=== PATIENT | male | born 1950 | race Native Hawaiian/Other Pacific Islander ===

== ENCOUNTER 2016-05-08 16:06 | Emergency (ER) | payer MEDICARE ==
[~2016-05-08] VITALS: Ht 162.6 cm; Wt 60.5 kg
[~2016-05-08 16:06] MED LIST: IBUP600T26 PO; TRAM50 PO
[2016-05-08 16:10] VITALS: BP 169/98; PULSE 68; RESP 16; TEMP 97.7; O2SAT 100
[2016-05-08] MEDS ORDERED: DIPH1TAB4 PO (16:23)
[2016-05-08] MEDS ORDERED: SODIUM CHLOR 0.9% 1000 ML INJ 1,000 ML IV SCH (17:00)
[2016-05-08] MEDS ORDERED: ONDANSETRON HCL 4 MG/2 ML VIAL IVP ONE (17:00)
[2016-05-08] MEDS ORDERED: SODIUM CHLORIDE 0.9% FLUSH 5 ML FLUSH IVF PRN (17:00)
[2016-05-08] MEDS ORDERED: FAMOTIDINE 20 MG TAB PO ONE (17:00)
[2016-05-08] MEDS ORDERED: LIDOCAINE VISCOUS 2% SOLN 15 ML UDC PO ONE (17:00)
[2016-05-08] MEDS ORDERED: ALUMINUM/MAGNESIUM/SIMETH 30 ML CUP PO ONE (17:00)
--- NOTE | 2016-05-08 17:06 | PD ---
HPI Chief Complaint: GI Complaint Time Seen by Provider: 16:31 Travel History International Travel<30 days: No Contact w/Intl Traveler<30days: No Traveled to known affect area: No History of Present Illness HPI This 65-year-old man who presents to the emergency department complaining of epigastric pressure and discomfort with increased belching, ongoing for sometime or worse over the past week. Is no history of any significant medical problems. He's had some associated nausea. He denies any chest pain but states sometimes the pain affect. He had a bowel movement yesterday, states he is been a little bit constipated recently. The only history of abdominal surgery was a surgical removal kidney stone in the 70s. No other complaints. History Past Medical History Medical History: Denies Significant Hx Influenza Vaccination: No Social History Alcohol Use: No Tobacco Use: No Allergies-Medications (Allergen,Severity, Reaction): Coded Allergies: No Known Allergies (Verified , 05/08/16) Reported Meds & Prescriptions Reported Meds & Active Scripts Active Reported Sleep Aid (Diphenhydramine HCl (Sleep)) 25 Mg Tab 0 PO HS Review of Systems Except as stated in HPI: all other systems reviewed are Neg Physical Exam Narrative GENERAL: Well-appearing 65-year-old man, no acute distress. SKIN: Warm and dry. HEAD: Atraumatic. Normocephalic. EYES: Pupils equal and round. No scleral icterus. No injection or drainage. ENT: No nasal bleeding or discharge. Mucous membranes pink and moist. NECK: Trachea midline. No JVD. CARDIOVASCULAR: Regular rate and rhythm. No murmur appreciated. RESPIRATORY: No accessory muscle use. Clear to auscultation. Breath sounds equal bilaterally. GASTROINTESTINAL: Normal contour and appearance. Abdomen is soft. Mild epigastric tenderness. No right upper quadrant tenderness. Negative Lunsford's. MUSCULOSKELETAL: No obvious deformities. No clubbing. No cyanosis. No edema. NEUROLOGICAL: Awake and alert. No obvious cranial nerve deficits. Motor grossly within normal limits. Normal speech. Data Data Last Documented VS Vital Signs Date Time Temp Pulse Resp B/P Pulse Ox O2 Delivery O2 Flow Rate FiO2 05/08/16 18:35 70 16 173/78 100 Room Air 05/08/16 16:10 97.7 Orders Complete Blood Count With Diff (05/08/16 17:00) Comprehensive Metabolic Panel (05/08/16 17:00) Lipase (3/2/17 17:00) Abdomen, Flat & Upright (05/08/16 ) Iv Access Insert/Monitor (05/08/16 17:00) Ondansetron Inj (Zofran Inj) (05/08/16 17:00) Sodium Chlor 0.9% 1000 Ml Inj (Ns 1000 M (05/08/16 17:00) Sodium Chloride 0.9% Flush (Ns Flush) (05/08/16 17:00) Electrocardiogram (05/08/16 17:00) Chest, Single Ap (05/08/16 17:00) Al-Mag Hy-Si 40-40-4 Mg/Ml Liq (Mag-Al P (05/08/16 17:00) Lidocaine 2% Viscous (Xylocaine 2% Visco (05/08/16 17:00) Famotidine (Pepcid) (05/08/16 17:00) Labs Laboratory Tests Test 05/08/16 17:25 White Blood Count 6.3 TH/MM3 Red Blood Count 4.41 MIL/MM3 Hemoglobin 13.2 GM/DL Hematocrit 38.0 % Mean Corpuscular Volume 86.2 FL Mean Corpuscular Hemoglobin 29.9 PG Mean Corpuscular Hemoglobin 34.7 % Concent Red Cell Distribution Width 11.7 % Platelet Count 254 TH/MM3 Mean Platelet Volume 8.0 FL Neutrophils (%) (Auto) 65.3 % Lymphocytes (%) (Auto) 27.2 % Monocytes (%) (Auto) 6.5 % Eosinophils (%) (Auto) 0.8 % Basophils (%) (Auto) 0.2 % Neutrophils # (Auto) 4.1 TH/MM3 Lymphocytes # (Auto) 1.7 TH/MM3 Monocytes # (Auto) 0.4 TH/MM3 Eosinophils # (Auto) 0.1 TH/MM3 Basophils # (Auto) 0.0 TH/MM3 CBC Comment DIFF FINAL Differential Comment Sodium Level 137 MEQ/L Potassium Level 3.8 MEQ/L Chloride Level 100 MEQ/L Carbon Dioxide Level 27.9 MEQ/L Anion Gap 9 MEQ/L Blood Urea Nitrogen 24 MG/DL Creatinine 1.30 MG/DL Estimat Glomerular Filtration 55 ML/MIN Rate Random Glucose 263 MG/DL Calcium Level 8.4 MG/DL Total Bilirubin 0.4 MG/DL Aspartate Amino Transf 8 U/L (AST/SGOT) Alanine Aminotransferase 24 U/L (ALT/SGPT) Alkaline Phosphatase 66 U/L Total Protein 7.9 GM/DL Albumin 3.9 GM/DL Lipase 101 U/L [facility] Medical Decision Making Medical Screen Exam Complete: Yes Emergency Medical Condition: Yes Interpretation(s) LABS: CBC unremarkable CMP remarkable for mildly elevated glucose 263 Lipase 101 Abdominal x-ray: Normal examination. Differential Diagnosis Gastritis, pancreatitis, hepatobiliary disease, ACS, pneumonia, obstruction, other Narrative Course Medical decision making INITIAL: 65-year-old male presents to the emergency department with belching a lot and epigastric pressure I think is likely related to gastritis. I don't see any evidence of gallbladder disease. I don't think he has obstruction. We' ll check labs, imaging, EKG and chest x-ray, likely discharge with antacids. Diagnosis Primary Impression: New onset type 2 diabetes mellitus Additional Impression: Belching Additional Instructions: Take metformin as prescribed for elevated blood sugar. Take ranitidine as prescribed for indigestion symptoms. Follow-up with a primary physician in the next one to 2 weeks for evaluation. Return to the emergency department for any new or worsening symptoms. Med/Other Pt SpecificInfo: Prescription(s) given Scripts Ranitidine 150 Mg [id number] Mg PO BID #60 TAB Ref 0 Prov:Kin Bethea MD 05/08/16 Metformin 500 Mg [id number] Mg PO BIDPC #60 TAB Ref 0 With meals Prov:Kin Bethea MD 05/08/16 Disposition: 01 DISCHARGE HOME Condition: Stable Kin Bethea MD May 08, 2016 17:06
[2016-05-08 17:25] VITALS: BP 191/84; PULSE 66; RESP 16; O2SAT 100
--- NOTE | 2016-05-08 17:31 | RADHPO ---
EXAM DATE/TIME: 05/08/2016 17:10 [facility] COMPARISON: No previous studies available for comparison. INDICATIONS : Chest pains. MEDICAL HISTORY : None. SURGICAL HISTORY : None. ENCOUNTER: Initial ACUITY: 1 week PAIN SCORE: 8/10 LOCATION: Right chest lower side FINDINGS: A single view of the chest demonstrates the lungs to be symmetrically aerated without evidence of mas s, infiltrate or effusion. The cardiomediastinal contours are unremarkable. Osseous structures are intact. CONCLUSION: Normal examination. Kin Schwartz MD on May 08, 2016 at 17:29 Board Certified Radiologist. This report was verified electronically.
--- NOTE | 2016-05-08 17:33 | RADHPO ---
EXAM DATE/TIME: 05/08/2016 17:14 [facility] COMPARISON: No previous studies available for comparison. INDICATIONS : Abdomen pain. MEDICAL HISTORY : None. SURGICAL HISTORY : None. ENCOUNTER: Initial ACUITY: 1 week PAIN SCORE: 7/10 LOCATION: Right upper extremity FINDINGS: Supine and upright views of the abdomen were performed. The abdominal bowel gas pattern is normal. No air fluid levels are seen. No abnormal masses, calcifications, or organomegaly is seen. The visu alized lower lungs are clear. No evidence of free intraperitoneal gas. The osseous structures are u nremarkable. CONCLUSION: Normal examination. Calcification overlying the pelvis I suspect are all phleboliths. Kin Schwartz MD on May 08, 2016 at 17:31 Board Certified Radiologist. This report was verified electronically.
[2016-05-08 17:56] LABS: CHLORIDE 100 MEQ/L (98-107); POTASSIUM 3.8 MEQ/L (3.5-5.1); SODIUM (NA) 137 MEQ/L (136-145)
[2016-05-08 18:00] LABS: ANION GAP 9 MEQ/L (5-15); BICARBONATE 27.9 MEQ/L (21.0-32.0); BLOOD UREA NITROGEN 24 MG/DL (7-18)
[2016-05-08 18:03] LABS: ALT (GPT) 24 U/L (12-78); AST (GOT) 8 U/L (15-37); GLOMERULAR FILTRATION RATE 55 ML/MIN (>89)
[2016-05-08 18:04] LABS: TOTAL BILIRUBIN ADULT 0.4 MG/DL (0.2-1.0)
[2016-05-08 18:06] LABS: ALKALINE PHOSPHATASE 66 U/L (45-117)
[2016-05-08 18:35] VITALS: BP 173/78; PULSE 70; RESP 16; O2SAT 100
[2016-05-08 18:42] LABS: AUTOMATED NEUTROPHIL # 4.1 TH/MM3 (1.8-7.7); BASOPHIL % 0.2 % (0.0-2.0); EOSINOPHIL # 0.1 TH/MM3 (0-0.4); EOSINOPHIL % 0.8 % (0.0-4.0); HEMO FLAGS DIFF FINAL; LYMPH % 27.2 % (9.0-44.0); LYMPHOCYTE # 1.7 TH/MM3 (1.0-4.8); MEAN CELL VOLUME 86.2 FL (80.0-100.0); MEAN CORPUSCULAR HEMOGLOBIN 29.9 PG (27.0-34.0); MEAN CORPUSCULAR HGB CONC 34.7 % (32.0-36.0); MONO % 6.5 % (0.0-8.0); NEUT % 65.3 % (16.0-70.0); PLATELET COUNT 254 TH/MM3 (150-450); RED BLOOD COUNT 4.41 MIL/MM3 (4.50-5.90); RED CELL DISTRIBUTION WIDTH 11.7 % (11.6-17.2); WHITE BLOOD COUNT 6.3 TH/MM3 (4.0-11.0)
[2016-05-08] MEDS ORDERED: METF500T PO (18:49)
[2016-05-08] MEDS ORDERED: RANI150T PO (18:49)
--- NOTE | 2016-05-09 23:27 | EKG ---
Date Performed: 05/08/2016 Time Performed: 17:05:08 PTAGE: 65 years EKG: Sinus rhythm Left axis deviation Septal T wave changes are nonspecific Borderline ECG PREVIOUS TRACING : 12/02/2003 16.59 DOCTOR: Blake Weller Interpretating Date/Time 05/09/2016 23:26:03
== END 2016-05-08 19:49 | disposition home or self-care (01) ==
LOC: PHED 16:06
DX: E11.65 Type 2 diabetes mellitus with hyperglycemia (principal); R14.2 Eructation; Z79.4 Long term (current) use of insulin
CPT/HCPCS: 71010; 74020; 80053; 83690; 85025; 93005; 96361; 96374; 99284; J2405; J7030

== ENCOUNTER 2017-04-17 19:08 | Emergency (ER) | payer MEDICARE, OTHER ==
[~2017-04-17] VITALS: Ht 162.6 cm; Wt 57.7 kg
[~2017-04-17 19:08] MED LIST changes: +DIPH1TAB4 PO; -IBUP600T26 PO; +METF500T PO; +RANI150T PO; -TRAM50 PO
[2017-04-17 19:15] VITALS: BP 128/60; PULSE 82; RESP 18; TEMP 98; O2SAT 99
[2017-04-17] MEDS ORDERED: ROSU20 PO (19:22)
[2017-04-17] MEDS ORDERED: DIPH25CA PO (19:33)
[2017-04-17] MEDS ORDERED: ZANT150T2 PO (19:33)
--- NOTE | 2017-04-17 19:35 | PD ---
HPI Chief Complaint: Allergic/Adverse Reaction Time Seen by Provider: 19:21 Travel History International Travel<30 days: No Contact w/Intl Traveler<30days: No Traveled to known affect area: No History of Present Illness HPI The patient is a 66-year-old male that was cutting wood and about an hour 15 minutes later he developed a rash and hives which are generalized. He states the wood chips got all over him and he has never had this before. He denies any syncopal or near syncopal spells or shortness of breath or wheezing. He denies any chest pain. He denies any fever. PFSH Past Medical History Diabetes: Yes Patient Takes Glucophage: Yes Diminished Hearing: No Tetanus Vaccination: Unknown Influenza Vaccination: No Past Surgical History Genitourinary Surgery: Yes (1976 KIDNEY STONE REMOVAL) Social History Alcohol Use: No Tobacco Use: No Substance Use: No Allergies-Medications (Allergen,Severity, Reaction): Coded Allergies: No Known Allergies (Verified Adverse Reaction, Unknown, 04/17/17) Reported Meds & Prescriptions Reported Meds & Active Scripts Active Zantac (Ranitidine HCl) 150 Mg Tab 150 Mg PO BID Diphenhydramine (Diphenhydramine HCl) 25 Mg Cap 25 Mg PO Q6H PRN Metformin (Metformin HCl) 500 Mg Tab 500 Mg PO BIDPC With meals Reported Crestor (Rosuvastatin Calcium) 20 Mg Tab 20 Mg PO DAILY Sleep Aid (Diphenhydramine HCl (Sleep)) 25 Mg Tab 0 PO HS Review of Systems Except as stated in HPI: all other systems reviewed are Neg Physical Exam Narrative GENERAL: The patient is alert, oriented 3 and slight apparent distress with his generalized pruritic urticarial rash. His vital signs are normal. SKIN: Focused skin assessment warm/dry. HEAD: Atraumatic. Normocephalic. EYES: Pupils equal and round. No scleral icterus. No injection or drainage. ENT: No nasal bleeding or discharge. Mucous membranes pink and moist. NECK: Trachea midline. No JVD. CARDIOVASCULAR: Regular rate and rhythm. No murmur appreciated. RESPIRATORY: No accessory muscle use. Clear to auscultation. Breath sounds equal bilaterally. GASTROINTESTINAL: Abdomen soft, non-tender, nondistended. Hepatic and splenic margins not palpable. MUSCULOSKELETAL: No obvious deformities. No clubbing. No cyanosis. No edema. NEUROLOGICAL: Awake and alert. No obvious cranial nerve deficits. Motor grossly within normal limits. Normal speech. PSYCHIATRIC: Appropriate mood and affect; insight and judgment normal. Data Data Last Documented VS Vital Signs Date Time Temp Pulse Resp B/P (MAP) Pulse Ox O2 Delivery O2 Flow Rate FiO2 04/17/17 19:43 82 116/64 04/17/17 19:23 18 99 Room Air 04/17/17 19:15 98.0 Orders Orders Epinephrine (1:1000) Inj (Adrenalin (1:1 (04/17/17 19:45) Famotidine (Pepcid) (04/17/17 19:45) Diphenhydramine (Benadryl) (04/17/17 19:45) MDM Medical Decision Making Medical Screen Exam Complete: Yes Emergency Medical Condition: Yes Medical Record Reviewed: Yes Differential Diagnosis Allergic reaction, contact dermatitis, cellulitis-unlikely Narrative Course The patient has a generalized allergic reaction. It may be due to woodchips or substances contained within the woodchips. Plan: The patient be given prescriptions for Zantac and Benadryl. He is a diabetic and does not want to take prednisone. He will also get an epinephrine shot. Diagnosis Primary Impression: Allergic reaction Additional Impression: New onset type 2 diabetes mellitus Additional Instructions: This rash should go away in several days. If it does not he may need to be put on a course of prednisone. Follow-up with an stroboroma operator or your primary care physician. Med/Other Pt SpecificInfo: Prescription(s) given Scripts Ranitidine (Zantac) 150 Mg Tab 150 MG PO BID for Reduce Stomach Acid, #60 TAB 0 Refills Prov: Inocenico Escudero MD 04/17/17 Diphenhydramine (Diphenhydramine) 25 Mg Cap 25 MG PO Q6H Y for ALLERGIES, #44 CAP 0 Refills Prov: Inocencio Escudero MD 04/17/17 Disposition: 01 DISCHARGE HOME Condition: Stable Inocencio Escudero MD Apr 17, 2017 19:35
[2017-04-17] MEDS ORDERED: diphenhydrAMINE HCL 50 MG CAP PO ONE (19:45)
[2017-04-17] MEDS ORDERED: EPINEPHrine HCL (1:1000) 1 MG/ML VIAL IM ONE (19:45)
[2017-04-17] MEDS ORDERED: FAMOTIDINE 20 MG TAB PO ONE (19:45)
[2017-04-17 20:23] VITALS: BP 129/57; PULSE 82; RESP 18; O2SAT 100
== END 2017-04-17 20:29 | disposition home or self-care (01) ==
LOC: PHED 19:08
DX: R21 Rash and other nonspecific skin eruption (principal); T78.49XA Other allergy, initial encounter; Y93.H9 Activity, other involving exterior property and land maintenance, building and construction; E11.9 Type 2 diabetes mellitus without complications; Z79.84 Long term (current) use of oral hypoglycemic drugs
CPT/HCPCS: 96372; 99283; J0171; Q0163

== ENCOUNTER 2017-04-26 16:34 | Emergency (ER) | payer OTHER ==
[~2017-04-26] VITALS: Ht 162.6 cm; Wt 57.0 kg
[~2017-04-26 16:34] MED LIST changes: +DIPH25CA PO; -RANI150T PO; +ROSU20 PO; +ZANT150T2 PO
[2017-04-26 16:38] VITALS: BP 139/69; PULSE 76; RESP 16; TEMP 98.5; O2SAT 100
[2017-04-26] MEDS ORDERED: METF500T PO (16:48)
[2017-04-26] MEDS ORDERED: METF1000 PO (16:48)
[2017-04-26] MEDS ORDERED: ROSU20 PO (16:48)
[2017-04-26] MEDS ORDERED: AZIT250T3 PO (17:48)
[2017-04-26] MEDS ORDERED: BENZ100 PO (17:48)
--- NOTE | 2017-04-26 17:49 | PD ---
HPI Chief Complaint: Cold / Flu Symptoms Time Seen by Provider: 17:27 Travel History International Travel<30 days: No Contact w/Intl Traveler<30days: No Traveled to known affect area: No History of Present Illness HPI This is a 66-year-old male here with cough and nasal congestion 2 weeks. He reports the last several days he developed a productive cough. He denies fever or chills. Symptom severity is mild to moderate. No aggravating or alleviating factors. He denies chest pain or shortness of breath. PFSH Past Medical History Hx Anticoagulant Therapy: No Cardiovascular Problems: Yes (CHOL) Diabetes: Yes Patient Takes Glucophage: Yes (04-26-17 0900) Diminished Hearing: No Tetanus Vaccination: < 5 Years Influenza Vaccination: No Past Surgical History Genitourinary Surgery: Yes (1976 KIDNEY STONE REMOVAL) Social History Alcohol Use: No Tobacco Use: No Substance Use: No Allergies-Medications (Allergen,Severity, Reaction): Coded Allergies: No Known Allergies (Verified Adverse Reaction, Unknown, 04/26/17) Reported Meds & Prescriptions Reported Meds & Active Scripts Active Reported Crestor (Rosuvastatin Calcium) 20 Mg Tab 20 Mg PO DAILY Metformin (Metformin HCl) 500 Mg Tab 500 Mg PO DAILY With a meal Metformin (Metformin HCl) 1,000 Mg Tab 1,000 Mg PO DAILY With a meal Review of Systems Except as stated in HPI: all other systems reviewed are Neg General / Constitutional: No: Fever Eyes: No: Visual changes HENT: Positive: Congestion, No: Headaches Cardiovascular: No: Chest Pain or Discomfort Respiratory: Positive: Cough Gastrointestinal: No: Abdominal Pain Genitourinary: No: Dysuria Musculoskeletal: No: Pain Skin: No Rash Physical Exam Narrative GENERAL: Alert 66-year-old male. Nontoxic appearing. SKIN: Warm and dry. No rash HEAD: Normocephalic. EYES: No injection or drainage. Ear/nose/throat: No TM erythema. Clear nasal discharge. Mild pharyngeal erythema without tonsillar hypertrophy or exudate. NECK: Supple. No meningismus. CARDIOVASCULAR: Regular rate and rhythm RESPIRATORY: Breath sounds equal bilaterally. No accessory muscle use. No wheezing. rhonchorous cough GASTROINTESTINAL: Abdomen soft, non-tender, nondistended. MUSCULOSKELETAL: No cyanosis, or edema. BACK: No CVA tenderness. Data Data Last Documented VS Vital Signs Date Time Temp Pulse Resp B/P (MAP) Pulse Ox O2 Delivery O2 Flow Rate FiO2 04/26/17 16:38 98.5 76 16 139/69 (92) 100 MDM Medical Decision Making Medical Screen Exam Complete: Yes Emergency Medical Condition: Yes Differential Diagnosis Influenza, bronchitis, pneumonia Narrative Course This is a 66-year-old male here with bronchitis. He is well-appearing. His vital signs are stable. Given his age and duration of symptoms. He'll be treated with azithromycin. Diagnosis Primary Impression: Bronchitis Referrals: Primary Care Physician Additional Instructions: Antibiotic as directed. Tylenol and ibuprofen as needed for pain and fever. Stay well hydrated. Follow-up with her primary doctor. Scripts Benzonatate (Tessalon Perles) 100 Mg Cap 200 MG PO TID Y for COUGH, #12 CAP 0 Refills Prov: Mulu Ford 04/26/17 Azithromycin (Azithromycin) 250 Mg Tab 250 MG PO DIRECTED for Infection, #6 TAB 0 Refills Take 2 tabs (500 mg) on day 1 then 1 tab daily x 4 days. Prov: Mulu Ford 04/26/17 Disposition: 01 DISCHARGE HOME Condition: Stable Mulu Ford Apr 26, 2017 17:49
== END 2017-04-26 18:08 | disposition home or self-care (01) ==
LOC: PHEFT 16:34
DX: J40 Bronchitis, not specified as acute or chronic (principal); E11.9 Type 2 diabetes mellitus without complications; Z79.899 Other long term (current) drug therapy
CPT/HCPCS: 99283

== ENCOUNTER 2017-05-22 17:35 | Emergency (ER) | payer OTHER ==
[~2017-05-22] VITALS: Ht 162.6 cm; Wt 60.0 kg
[~2017-05-22 17:35] MED LIST changes: +AZIT250T3 PO; +BENZ100 PO; -DIPH1TAB4 PO; -DIPH25CA PO; +METF1000 PO; -ZANT150T2 PO
[2017-05-22 17:46] VITALS: BP 136/72; PULSE 82; RESP 16; TEMP 98.2; O2SAT 99
[2017-05-22] MEDS ORDERED: MOBI15TA PO (18:12)
--- NOTE | 2017-05-22 18:12 | PD ---
HPI Chief Complaint: Pain: Acute or Chronic Time Seen by Provider: 17:56 Travel History International Travel<30 days: No Contact w/Intl Traveler<30days: No Traveled to known affect area: No History of Present Illness HPI 66-year-old male presents to emergency department for evaluation of pain from his left elbow to his left wrist. This is been ongoing for the last 3 years. Sometimes it is worse than other times. He seems to notice it more at night. States he is right-handed and does not do any repetitive movements with his left upper extremity. He has been told in the past that he has carpal tunnel but has not sought follow-up. He denies any new injury. Denies any chest or tightness. No difficult breathing. No other symptoms to report [facility] Past Medical History Hx Anticoagulant Therapy: No Cardiovascular Problems: Yes (CHOL) High Cholesterol: Yes Diabetes: Yes Patient Takes Glucophage: Yes (05-22-17 0800) Diminished Hearing: No Immunizations Current: Yes Tetanus Vaccination: Unknown Influenza Vaccination: No Past Surgical History Genitourinary Surgery: Yes (1976 KIDNEY STONE REMOVAL) Social History Alcohol Use: No Tobacco Use: No Substance Use: No Allergies-Medications (Allergen,Severity, Reaction): Coded Allergies: No Known Allergies (Verified Adverse Reaction, Unknown, 05/22/17) Reported Meds & Prescriptions Reported Meds & Active Scripts Active Mobic (Meloxicam) 15 Mg Tab 15 Mg PO DAILY PRN Reported Crestor (Rosuvastatin Calcium) 20 Mg Tab 20 Mg PO DAILY Metformin (Metformin HCl) 500 Mg Tab 500 Mg PO DAILY With a meal Metformin (Metformin HCl) 1,000 Mg Tab 1,000 Mg PO DAILY With a meal Review of Systems Except as stated in HPI: all other systems reviewed are Neg Physical Exam Narrative GENERAL: Well-nourished male patient, in no acute distress. SKIN: Focused skin assessment warm/dry. HEAD: Atraumatic. Normocephalic. EYES: Pupils equal and round. No scleral icterus. No injection or drainage. ENT: No nasal bleeding or discharge. Mucous membranes pink and moist. NECK: Trachea midline. No JVD. CARDIOVASCULAR: Regular rate and rhythm. No murmur appreciated. RESPIRATORY: No accessory muscle use. Clear to auscultation. Breath sounds equal bilaterally. GASTROINTESTINAL: Abdomen soft, non-tender, nondistended. Hepatic and splenic margins not palpable. MUSCULOSKELETAL: No obvious deformities. No clubbing. No cyanosis. No edema. 5+ strength equal bilateral extremities. Patient is full flexion, extension, supination, pronation of the left forearm elbow area. His elicited palpation on the left lateral forearm. No deformity. No erythema or edema. Distal pulses are palpable. Cap refill is within normal limits. NEUROLOGICAL: Awake and alert. No obvious cranial nerve deficits. Motor grossly within normal limits. Normal speech. PSYCHIATRIC: Appropriate mood and affect; insight and judgment normal.. . Data Data Last Documented VS Vital Signs Date Time Temp Pulse Resp B/P (MAP) Pulse Ox O2 Delivery O2 Flow Rate FiO2 05/22/17 17:46 98.2 82 16 136/72 (93) 99 Orders Orders Splint Or Brace Apply/Monitor (05/22/17 18:12) Ed Discharge Order (05/22/17 18:12) Cockup Hand Splint (05/22/17 ) [facility] Medical Decision Making Medical Screen Exam Complete: Yes Emergency Medical Condition: Yes Medical Record Reviewed: Yes Differential Diagnosis Tendinitis versus neuropathy versus paresthesia versus strain versus sprain versus bursitis Narrative Course 66-year-old male presents to the emergency department for evaluation of pain from his left elbow to his left breast. This has been ongoing and the patient has not sought follow-up. Encouraged patient to follow-up with a hand specialist. He'll be provided a cock up wrist splint. He is counseled on care. He agrees to return immediately with any acute worsening symptoms. Diagnosis Primary Impression: Left wrist pain Additional Impression: Left wrist tendinitis Referrals: Yaz Banks MD Primary Care Physician Patient Instructions: General Instructions, Tendinitis (ED) Additional Instructions: Wear brace for support Follow-up with hand specialist Follow-up with a primary care provider Return immediately with any acute worsening of symptoms Med/Other Pt SpecificInfo: Prescription(s) given Scripts Meloxicam (Mobic) 15 Mg Tab 15 MG PO DAILY Y for PAIN SCALE 1 TO 10, #14 TAB 0 Refills Prov: Laurie Lainez MARVIN 05/22/17 Disposition: 01 DISCHARGE HOME Condition: Stable FatouLaurie WONG May 22, 2017 18:12
== END 2017-05-22 18:18 | disposition home or self-care (01) ==
LOC: PHEFT 17:35
DX: M25.532 Pain in left wrist (principal); M77.9 Enthesopathy, unspecified; M25.522 Pain in left elbow; E11.9 Type 2 diabetes mellitus without complications; E78.00 Pure hypercholesterolemia, unspecified; Z79.84 Long term (current) use of oral hypoglycemic drugs
CPT/HCPCS: 99283; L3908